=== PATIENT | male | born 2000 | race Caucasian/White ===

== ENCOUNTER 2024-03-03 21:52 | Emergency (ER) | payer MEDICAID ==
[~2024-03-03] VITALS: Ht 177.8 cm; Wt 70.3 kg
[2024-03-03 22:07] VITALS: BP_SYST 140; PULSE 76; RESP 18; TEMP 97.9; O2SAT 98
== END 2024-03-03 23:24 | disposition home or self-care (01) ==
LOC: SED 21:52
DX: H61.21 Impacted cerumen, right ear (principal)
CPT/HCPCS: 99282